=== PATIENT | female | born 2000 | race Caucasian/White ===

== ENCOUNTER 2024-11-01 06:02 | Emergency (ER) | payer OTHER ==
[~2024-11-01] VITALS: Ht 160 cm; Wt 72.7 kg
[2024-11-01 06:03] VITALS: BP 126/71; PULSE 82; RESP 18; TEMP 98.6; O2SAT 100
[2024-11-01] MEDS: KETOROLAC TROMETHAMINE 30 MG/ML VIAL IM ONE (06:23)
[2024-11-01] MEDS: ACETAMINOPHEN 500 MG TABLET PO ONE (06:23)
[2024-11-01] MEDS ORDERED: AMOX-457 PO (06:27)
[2024-11-01] MEDS ORDERED: IBUP-1492 PO (06:27)
[2024-11-01] MEDS ORDERED: ACET-3385 PO (06:27)
[2024-11-01] MEDS: AMOX TR/POT CLAV 875 MG/125 MG TABLET PO ONE (06:35)
== END 2024-11-01 06:44 | disposition admitted as inpatient to this hospital (09) ==
LOC: EMS 06:02
DX: K02.9 Dental caries, unspecified (principal); K08.89 Other specified disorders of teeth and supporting structures; Z98.890 Other specified postprocedural states
CPT/HCPCS: 99283; 96372; J1885